=== PATIENT | female | born 1995 | race Two or more races ===

== ENCOUNTER → 2018-02-15 | Outpatient (CLI) | payer BC ==
[2018-02-15 12:59] LABS: Basophils # (auto) 0 uL; Basophils % (auto) 0.4 % (0.0-2.0); Eosinophils # (auto) 0.1 uL; Eosinophils % (auto) 1.8 % (0.0-7.0); Hematocrit 38.9 % (36.0-46.0); Hemoglobin 13.6 g/dL (12.2-16.2); Lymphocytes % (auto) 38.9 % (10.0-50.0); Mean Corpuscular Hemoglobin 32.2 pg (28.0-32.0); Mean Corpuscular Volume 92.1 fL (80.0-100.0); Monocytes # (auto) 0.6 uL; Monocytes % (auto) 7.4 % (0.0-12.0); Neutrophils # (auto) 3.9 uL; Neutrophils % (auto) 51.5 % (37.0-80.0); Platelet Count (auto) 356 10^3/uL (140-450); Red Blood Cells 4.23 10^6/uL (4.0-5.20); Red Cell Distribution Width 13.3 % (11.8-14.3); White Blood Cell 7.7 10^3/uL (4.4-10.8)
[2018-02-15 13:39] LABS: BUN/Creatinine Ratio 12.9; Bilirubin, Total 0.6 mg/dL (0.2-1.0); Calcium 8.8 mg/dL (8.5-10.1); Potassium 3.9 mmol/L (3.5-5.1); Total Protein 8.3 g/dL (6.4-8.2)
[2018-02-15 14:14] LABS: Hepatitis B Surface Antibody Positive
[2018-02-15 15:34] LABS: Hepatitis B Surface Antigen Negative (Negative)
[2018-02-16 08:05] LABS: RPR Non Reactive (Non Reactive)
== END | disposition home or self-care (01) ==
LOC: LAB 11:28
PROVIDERS: ATTEND Physician Assistant
DX: Z00.01 Encounter for general adult medical examination with abnormal findings (principal); R11.0 Nausea; R68.89 Other general symptoms and signs; K29.80 Duodenitis without bleeding; R25.2 Cramp and spasm; Z20.2 Contact with and (suspected) exposure to infections with a predominantly sexual mode of transmission; Z90.49 Acquired absence of other specified parts of digestive tract
CPT/HCPCS: 36415; 80053; 80061; 84443; 85025; 86592; 86703; 86706; 86803; 87340

== ENCOUNTER → 2018-05-21 | Outpatient (CLI) | payer BC | END | disposition home or self-care (01) | LOC: LAB 11:43 | PROVIDERS: ATTEND Internal Medicine Gastroenterology | DX: R10.33 Periumbilical pain (principal); R11.0 Nausea; R10.13 Epigastric pain | CPT/HCPCS: 36415; 82565; 82784; 83516; 84520; 86255 ==

== ENCOUNTER 2018-06-01 09:52 | Day surgery (SDC) | payer BC ==
[2018-05-28 08:54] LABS: Basophils # (auto) 0 uL; Basophils % (auto) 0.5 % (0.0-2.0); Eosinophils # (auto) 0.2 uL; Eosinophils % (auto) 2.2 % (0.0-7.0); Hematocrit 39.6 % (36.0-46.0); Lymphocytes # (auto) 2.4 uL; Lymphocytes % (auto) 33.4 % (10.0-50.0); Mean Corpuscular Hemoglobin 30.5 pg (28.0-32.0); Mean Corpuscular Hgb Conc. 32.9 g/dL (32.0-36.0); Mean Corpuscular Volume 92.7 fL (80.0-100.0); Monocytes # (auto) 0.7 uL; Monocytes % (auto) 9.5 % (0.0-12.0); Neutrophils % (auto) 54.4 % (37.0-80.0); Nucleated Red Blood Cells % 0.1 %; Platelet Count (auto) 305 10^3/uL (140-450); Red Blood Cells 4.27 10^6/uL (4.0-5.20); Red Cell Distribution Width 13.6 % (11.8-14.3); White Blood Cell 7.3 10^3/uL (4.4-10.8)
[2018-05-28 09:07] LABS: INR 0.95 (0.9-1.15); Partial Thromboplastin Time 29.3 sec (23.78-33.04); Prothrombin Time 10.2 sec (9.27-12.13)
[~2018-06-01] VITALS: Ht 152.4 cm; Wt 93.4 kg
[~2018-06-01 09:52] MED LIST: BUPR-40 PO; ESOM0.1C PO; RANI-185 PO
[2018-06-01] MEDS ORDERED: LIDOCAINE VISCOUS 2% 15ML UD ONE (10:10)
[2018-06-01] MEDS ORDERED: SODIUM CHLORIDE LOCK 10 ML ONE (10:10)
[2018-06-01] MEDS ORDERED: diphenhdrAMINE HCL 50 MG/1 ML VL ONE (10:11)
[2018-06-01] MEDS: MIDAZOLAM HCL 5 MG/ML-1ML VIAL ONE ×2 (10:51→10:54)
[2018-06-01] MEDS: fentaNYL CITRATE 100 MCG/2 ML VL ONE ×2 (10:51→10:54)
[2018-06-01 11:39] VITALS: BP 114/68
== END 2018-06-01 11:50 | disposition home or self-care (01) ==
LOC: GI 09:52
PROVIDERS: ATTEND Internal Medicine Gastroenterology
DX: K29.50 Unspecified chronic gastritis without bleeding (principal); K21.9 Gastro-esophageal reflux disease without esophagitis; E66.9 Obesity, unspecified; Z68.41 Body mass index [BMI] 40.0-44.9, adult; Z90.49 Acquired absence of other specified parts of digestive tract; Z79.899 Other long term (current) drug therapy
CPT/HCPCS: 36415; 43239; 84702; 85025; 85610; 85730; A6257; J1200; J2250; J3010; J7030

== ENCOUNTER → 2018-07-30 | Outpatient (CLI) | payer BC | END | disposition home or self-care (01) | LOC: LAB 11:38 | PROVIDERS: ATTEND Physician Assistant | DX: N92.6 Irregular menstruation, unspecified (principal) | CPT/HCPCS: 36415; 81025; 84702 ==

== ENCOUNTER → 2018-11-23 | Outpatient (CLI) | payer BC ==
[2018-11-23 12:47] LABS: Basophils # (auto) 0 uL; Basophils % (auto) 0.6 % (0.0-2.0); Eosinophils # (auto) 0.2 uL; Eosinophils % (auto) 2.2 % (0.0-7.0); Hematocrit 40.4 % (36.0-46.0); Hemoglobin 13.7 g/dL (12.2-16.2); Lymphocytes # (auto) 3.1 uL; Lymphocytes % (auto) 42.8 % (10.0-50.0); Mean Corpuscular Hemoglobin 31.8 pg (28.0-32.0); Mean Corpuscular Volume 93.7 fL (80.0-100.0); Monocytes # (auto) 0.5 uL; Monocytes % (auto) 6.9 % (0.0-12.0); Neutrophils # (auto) 3.5 uL; Neutrophils % (auto) 47.5 % (37.0-80.0); Nucleated Red Blood Cells % 0.1 %; Platelet Count (auto) 349 10^3/uL (140-450); Red Blood Cells 4.31 10^6/uL (4.0-5.20); Red Cell Distribution Width 13.4 % (11.8-14.3); White Blood Cell 7.3 10^3/uL (4.4-10.8)
[2018-11-23 13:50] LABS: Potassium 4.2 mmol/L (3.5-5.1)
[2018-11-23 14:07] LABS: Albumin 3.7 g/dL (3.4-5.0); BUN/Creatinine Ratio 8.8; Bilirubin, Total 0.3 mg/dL (0.2-1.0); Total Protein 7.7 g/dL (6.4-8.2)
== END | disposition home or self-care (01) ==
LOC: LAB 12:13
PROVIDERS: ATTEND Physician Assistant
DX: F34.1 Dysthymic disorder (principal); F41.9 Anxiety disorder, unspecified; K25.7 Chronic gastric ulcer without hemorrhage or perforation; K29.60 Other gastritis without bleeding
CPT/HCPCS: 36415; 80053; 80061; 85025

== ENCOUNTER 2020-01-06 17:38 | Inpatient (IN) | payer BC, MEDICAID ==
[~2020-01-06] VITALS: Ht 152.4 cm; Wt 76.0 kg
[2020-01-06] MEDS ORDERED: DOXYCYCLINE 100MG/250ML 250 ML IV ONE (19:00)
[2020-01-06] MEDS ORDERED: DexAMETHasone SOD PHOS 10MG/1ML VIAL INJ IV ONE (19:00)
[2020-01-06] MEDS ORDERED: SODIUM CHLORIDE 0.9% 1,000 ML IV ONE (19:00)
[2020-01-06 19:15] LABS: Basophils # (auto) 0 10 ^3/uL (0-0.2); Basophils % (auto) 0.3 % (0.0-2.0); Eosinophils # (auto) 0 10 ^3/uL (0-0.8); Lymphocytes # (auto) 0.9 10 ^3/uL (0.4-5.4); Lymphocytes % (auto) 14.2 % (10.0-50.0); Mean Corpuscular Hemoglobin 31.1 pg (28.0-32.0); Mean Corpuscular Hgb Conc. 33.3 g/dL (32.0-36.0); Mean Corpuscular Volume 93.4 fL (80.0-100.0); Monocytes # (auto) 0.8 10 ^3/uL (0-1.3); Monocytes % (auto) 12.7 % (0.0-12.0); Neutrophils # (auto) 4.8 10 ^3/uL (1.6-8.6); Neutrophils % (auto) 72.8 % (37.0-80.0); Platelet Count (auto) 308 10^3/uL (140-450); Red Blood Cells 4.49 10^6/uL (4.0-5.20); Red Cell Distribution Width 13.5 % (11.8-14.3); White Blood Cell 6.6 10^3/uL (4.4-10.8)
[2020-01-06 19:26] LABS: Albumin 3.6 g/dL (3.4-5.0); BUN/Creatinine Ratio 15.3; Potassium 3.9 mmol/L (3.5-5.1)
[2020-01-06 19:29] LABS: Bilirubin, Total 0.4 mg/dL (0.2-1.0); Total Protein 8.7 g/dL (6.4-8.2)
[2020-01-06] MEDS ORDERED: HYDROcodone-ACET 5/325MG TAB PO PRN (21:30)
[2020-01-06] MEDS ORDERED: ACETAMINOPHEN 500 MG TAB PO PRN (21:30)
[2020-01-06] MEDS ORDERED: ACETAMINOPHEN 325 MG TAB PO PRN (21:30)
[2020-01-06] MEDS ORDERED: DOCUSATE SOD 100 MG CAP PO PRN (21:30)
[2020-01-06] MEDS ORDERED: LORazepam 0.5 MG TAB PO PRN (21:30)
[2020-01-06] MEDS ORDERED: TEMAZEPAM 15 MG CAP PO PRN (21:30)
[2020-01-06] MEDS ORDERED: MORPHINE SULF INJ 2 MG/ML SYRINGE 1ML IV PRN (21:30)
[2020-01-06] MEDS ORDERED: ONDANSETRON HCL 4 MG/2 ML VIAL IV PRN (21:30)
[2020-01-06] MEDS: ALBUTEROL SULF HFA 90MCG INH 200DOSE IN SCH (22:00)
[2020-01-06 22:29] VITALS: BP 99/61
--- NOTE | 2020-01-06 22:29 | NUR ---
Telemetry admit from ER to [place] [address] Unit YOLANDA MARIA admitted to Telemetry unit. Patient oriented to CELI DEGROOT, primary RN, unit, room, bed, and unit policies regarding patient care and visiting hours. Patient now on continuous telemetry monitoring, tele box # 14 and telemetry reading on arrival to unit is sinus rhythm. Patient is alert and oriented x4. Patient reports mild shortness of breath at rest and more with exertion. Patient is on 2L/min NC, SPO2: 98% at this time. No sign/symptoms of distress noted or verbalized at this time. No use of accessory muscles noted at this time, patient is talking in full sentences. Patient denies pain at this time. Instructed on plan of care and encouraged patient to call for assistance as needed, patient verbalized as needed. Bed is locked in lowest position, side rails x 2 are up, and call light is within reach.
--- NOTE | 2020-01-06 22:30 | NUR ---
Incentive Spirometer Provided patient with an incentive spirometer. Educated patient on the purpose of the incentive spirometer, how often to use, and how to use it. Patient verbalized understanding and returned demonstration. Patient able to raise marker to 500ml without complications.
[2020-01-06] MEDS: DOXYCYCLINE 100 MG TAB/CAP PO SCH (22:52)
[2020-01-06] MEDS: SODIUM CHLORIDE 0.9% 1,000 ML IV SCH (22:53)
[2020-01-07] VITALS (7 sets, daily range): BP systolic 90–105; BP diastolic 41–67
[2020-01-07] MEDS ORDERED: OMEP-434 PO (00:01)
[2020-01-07] MEDS ORDERED: DOXE10CA PO (00:01)
[2020-01-07] MEDS ORDERED: PAR20T PO (00:01)
--- NOTE | 2020-01-07 00:42 | NUR ---
Urine Specimen Urine specimen collected and sent to lab via bullet as ordered by .
[2020-01-07 01:41] LABS: Urine Bacteria FEW /hpf (None Seen); Urine Blood 3+ /uL (Negative); Urine Specific Gravity 1.009 (1.001-1.035); Urine WBC 3 /hpf (0 - 5)
--- NOTE | 2020-01-07 02:30 | NUR ---
Charge nurse made aware of positive covid-19 test result. Covid-[address]
[2020-01-07 05:02] LABS: Basophils # (auto) 0 10 ^3/uL (0-0.2); Basophils % (auto) 0.3 % (0.0-2.0); Eosinophils # (auto) 0 10 ^3/uL (0-0.8); Hematocrit 38.2 % (36.0-46.0); Hemoglobin 12.6 g/dL (12.2-16.2); Lymphocytes # (auto) 0.9 10 ^3/uL (0.4-5.4); Lymphocytes % (auto) 23.6 % (10.0-50.0); Mean Corpuscular Hemoglobin 30.9 pg (28.0-32.0); Mean Corpuscular Hgb Conc. 32.9 g/dL (32.0-36.0); Mean Corpuscular Volume 93.7 fL (80.0-100.0); Monocytes # (auto) 0.4 10 ^3/uL (0-1.3); Monocytes % (auto) 11.9 % (0.0-12.0); Neutrophils # (auto) 2.4 10 ^3/uL (1.6-8.6); Neutrophils % (auto) 64.2 % (37.0-80.0); Nucleated Red Blood Cells % 0.1 %; Platelet Count (auto) 279 10^3/uL (140-450); Red Blood Cells 4.08 10^6/uL (4.0-5.20); Red Cell Distribution Width 13.1 % (11.8-14.3); White Blood Cell 3.8 10^3/uL (4.4-10.8)
[2020-01-07 05:16] LABS: Albumin 3.1 g/dL (3.4-5.0); Calcium 8.3 mg/dL (8.5-10.1); Magnesium 2.1 mg/dL (1.6-2.6); Potassium 3.9 mmol/L (3.5-5.1)
[2020-01-07 05:22] LABS: BUN/Creatinine Ratio 22.9; Bilirubin, Total 0.3 mg/dL (0.2-1.0); Total Protein 7.6 g/dL (6.4-8.2)
[2020-01-07] MEDS: ALBUTEROL SULF HFA 90MCG INH 200DOSE IN SCH ×4 (06:00→21:36)
--- NOTE | 2020-01-07 07:00 | NUR ---
Patient Lalo on monitor, however asymptomatic, patient already wearing 02 1/5 liters, sleeping. Patient states she always runs low on her blood pressure and heart rate. She says her primary Dr is aware and she takes no mediations for it.
[2020-01-07] MEDS ORDERED: ZINC SULFATE 220mg CAP or TAB PO SCH (10:00)
[2020-01-07] MEDS ORDERED: ENOXAPARIN SOD 40 MG/0.4 ML SYRINGE SC SCH (10:00)
[2020-01-07] MEDS ORDERED: PANTOPRAZOLE 40 MG TAB PO SCH (10:00)
[2020-01-07] MEDS ORDERED: ASCORBIC ACID 1,000 MG TAB PO SCH (10:00)
[2020-01-07] MEDS: DOXYCYCLINE 100 MG TAB/CAP PO SCH ×2 (10:04→21:36)
--- NOTE | 2020-01-07 13:03 | NUR ---
deandre MEDINA Re patients low HR and low BP (patient states these are normal for her).
--- NOTE | 2020-01-07 13:34 | NUR ---
Dr Giuliano Woodard. called back aware of HR and BP, no further orders. Waiting Pulm clearance.
[2020-01-07] MEDS: SODIUM CHLORIDE 0.9% 1,000 ML IV SCH (14:08)
--- NOTE | 2020-01-07 15:47 | NUR ---
Assessment Patient is a 24- year-old female who is alert and oriented. Prior to admission patient lived home with family and function independently. Per patient she can care for her own ADLs. Per patient she does not have any home oxygen or medical equipment now . Per patient she will return to her prior living arrangements post discharge and family will transport her home. Patient PCP is Dr. Hernandez. Advise patient to follow up with primary doctor after discharge. Advised patient there is a social service consult for home health safety evaluation. Informed patient clinical information will be faxed to [facility]. Informed patient she has the right to participate in all discharge planning. Patient verbalized understanding. Faxed clinical information to [facility] [facility] and [facility] requesting authorization for home health. Per Khushboo with [employer] [phone] patient has been accepted and service to start within 24-48hrs upon d/c day. Addendum: 01/07/20 at 1552 by SARAY DONAHUE Amended: Links added.
[2020-01-07] MEDS ORDERED: IOHEXOL 350 MG/ML 100ML IJ ONE (17:47)
--- NOTE | 2020-01-07 17:55 | NUR ---
Radiology called, they are preparing for patient, will meet at [facility] ante-room to take patient.
--- NOTE | 2020-01-07 17:59 | NUR ---
patient informed of potential DC, need for Urine sample and Ct and US. Patient verbalized understanding of instructions.
--- NOTE | 2020-01-07 18:10 | NUR ---
behavioral technician at bedside.
[2020-01-07] MEDS ORDERED: ZINC220T6 PO (18:12)
[2020-01-07] MEDS ORDERED: IPRIH INH (18:12)
[2020-01-07] MEDS ORDERED: ALBUAER3 IN (18:12)
[2020-01-07] MEDS ORDERED: DOX100T PO (18:12)
[2020-01-07] MEDS ORDERED: ASCO10003 PO (18:12)
--- NOTE | 2020-01-07 18:33 | NUR ---
ultrasound done, Ct at bedside to take patient down.
--- NOTE | 2020-01-07 18:43 | NUR ---
patient taken down to CT
--- NOTE | 2020-01-07 20:00 | NUR ---
Dr. Jones at Bedside Dr. Jones at bedside discussing plan of care with patient. Dr. Jones made aware that patient's oxygen saturation at rest is 98% on room air and with ambulation 94-95% on room air. Per Dr. Jones patient is cleared to be discharged from his standpoint.
--- NOTE | 2020-01-07 21:55 | NUR ---
[employer]S and Security Paged EVS and security paged.
--- NOTE | 2020-01-07 22:10 | NUR ---
EVS and security repaged EVS and security repaged.
--- NOTE | 2020-01-07 22:15 | NUR ---
Discharge Discharge instructions given as ordered. Encourage to follow up with primary care provider as instructed. Patient made aware that she has home health with [facility] and they should follow up with her within 24 to 48 hours of discharge, patient verbalized understanding. All questions and concerns addressed. Patient verbalized understanding. Medication reconciliation form completed and copy given to patient. New prescriptions sent to [facility] electronically. IV removed with catheter intact, pressure dressing applied. Telemetry unit returned to ICU. Patient taken to vehicle via wheelchair with all personal belongings, accompanied by staff, EVS, and security. No sign/symptoms of distress noted or verbalized upon departure.
== END 2020-01-08 00:09 | disposition home health service (06) | DRG 137 ==
LOC: ER 17:38 → TELE 17:39 → TELE-EAST 22:29
PROVIDERS: ADMIT Hospitalist; ATTEND Hospitalist
DX: U07.1 COVID-19 (principal); J12.89 Other viral pneumonia; E66.9 Obesity, unspecified; F41.9 Anxiety disorder, unspecified; K21.9 Gastro-esophageal reflux disease without esophagitis; Z82.49 Family history of ischemic heart disease and other diseases of the circulatory system; Z68.32 Body mass index [BMI] 32.0-32.9, adult; Z83.3 Family history of diabetes mellitus; J15.9 Unspecified bacterial pneumonia
CPT/HCPCS: 36415; 71045; 71275; 80053; 81001; 82728; 83605; 83735; 84702; 85025; 85379; 86141; 87040; 87081; 93970; 94640; 96365; 96366; 96375; G0378; J1100; J2405; J3490

== ENCOUNTER → 2020-08-14 | Outpatient (CLI) | payer MEDICAID ==
[~2020-08-14] MED LIST changes: +ALBUAER3 IN; +ASCO10003 PO; -BUPR-40 PO; +DOX100T PO; +DOXE10CA PO; -ESOM0.1C PO; +IPRIH INH; +OMEP-434 PO; +PAR20T PO; +ZINC220T6 PO
[2020-08-14 11:16] LABS: Basophils # (auto) 0 10 ^3/uL (0-0.2); Basophils % (auto) 0.9 % (0.0-2.0); Eosinophils # (auto) 0.1 10 ^3/uL (0-0.8); Eosinophils % (auto) 2.2 % (0.0-7.0); Hematocrit 34.7 % (36.0-46.0); Lymphocytes # (auto) 1.8 10 ^3/uL (0.4-5.4); Lymphocytes % (auto) 32.5 % (10.0-50.0); Mean Corpuscular Hemoglobin 32.4 pg (28.0-32.0); Mean Corpuscular Hgb Conc. 34.6 g/dL (32.0-36.0); Mean Corpuscular Volume 93.5 fL (80.0-100.0); Monocytes # (auto) 0.5 10 ^3/uL (0-1.3); Monocytes % (auto) 8.2 % (0.0-12.0); Neutrophils # (auto) 3.1 10 ^3/uL (1.6-8.6); Neutrophils % (auto) 56.2 % (37.0-80.0); Nucleated Red Blood Cells % 0.1 %; Platelet Count (auto) 284 10^3/uL (140-450); Red Blood Cells 3.71 10^6/uL (4.0-5.20); Red Cell Distribution Width 13.7 % (11.8-14.3); White Blood Cell 5.6 10^3/uL (4.4-10.8)
[2020-08-14 11:49] LABS: Albumin 3.4 g/dL (3.4-5.0); Calcium 8.5 mg/dL (8.5-10.1); Potassium 3.9 mmol/L (3.5-5.1)
[2020-08-14 11:55] LABS: BUN/Creatinine Ratio 28.3; Bilirubin, Total 0.4 mg/dL (0.2-1.0); Total Protein 7.2 g/dL (6.4-8.2)
[2020-08-15 07:06] LABS: RPR Non Reactive (Non Reactive)
== END | disposition home or self-care (01) ==
LOC: LAB 10:51
PROVIDERS: ATTEND Internal Medicine
DX: K25.7 Chronic gastric ulcer without hemorrhage or perforation (principal); R07.81 Pleurodynia; A54.9 Gonococcal infection, unspecified; R53.83 Other fatigue; B97.7 Papillomavirus as the cause of diseases classified elsewhere
CPT/HCPCS: 36415; 80053; 80061; 82306; 84443; 85025; 86592; 86703; 86704; 86706; 86708; 86803; 87340

== ENCOUNTER → 2021-06-25 | Outpatient (CLI) | payer MEDICAID | END | disposition home or self-care (01) | LOC: Rad HDHVI 08:13 | PROVIDERS: ATTEND Internal Medicine Cardiovascular Disease | DX: I05.0 Rheumatic mitral stenosis (principal); I35.0 Nonrheumatic aortic (valve) stenosis | CPT/HCPCS: 93306 ==

== ENCOUNTER → 2022-10-31 | Outpatient (CLI) | payer MEDICAID ==
[2022-10-31 15:13] LABS: Basophils # (auto) 0 10 ^3/uL (0-0.2); Basophils % (auto) 0.7 % (0.0-2.0); Eosinophils # (auto) 0.2 10 ^3/uL (0-0.8); Eosinophils % (auto) 2.5 % (0.0-7.0); Hematocrit 38.7 % (36.0-46.0); Hemoglobin 13.3 g/dL (12.2-16.2); Lymphocytes # (auto) 2.8 10 ^3/uL (0.4-5.4); Lymphocytes % (auto) 39.9 % (10.0-50.0); Mean Corpuscular Hemoglobin 30.8 pg (28.0-32.0); Mean Corpuscular Hgb Conc. 34.2 g/dL (32.0-36.0); Monocytes # (auto) 0.5 10 ^3/uL (0-1.3); Monocytes % (auto) 7.5 % (0.0-12.0); Neutrophils # (auto) 3.5 10 ^3/uL (1.6-8.6); Neutrophils % (auto) 49.4 % (37.0-80.0); Red Cell Distribution Width 13.9 % (11.8-14.3)
[2022-10-31 15:40] LABS: Albumin 3.8 g/dL (3.4-5.0); Calcium 8.6 mg/dL (8.5-10.1)
[2022-10-31 15:45] LABS: BUN/Creatinine Ratio 16.2 (10.0-20.0); Bilirubin, Total 0.4 mg/dL (0.2-1.0); Total Protein 7.6 g/dL (6.4-8.2)
== END | disposition home or self-care (01) ==
LOC: LAB 14:51
DX: E66.01 Morbid (severe) obesity due to excess calories (principal); E78.5 Hyperlipidemia, unspecified; F41.9 Anxiety disorder, unspecified
CPT/HCPCS: 36415; 80053; 80061; 82306; 84439; 84443; 85025

== ENCOUNTER 2025-04-15 12:47 | Outpatient (CLI) | payer OTHER ==
[~2025-04-15 12:47] MED LIST changes: +ALPR0.5T PO; +IBU600T PO; +PAR20T GT; +ZOFR4T PO
[2025-04-15 13:08] LABS: Hematocrit 36.2 % (36.0-46.0); Hemoglobin 12.2 g/dL (12.2-16.2); Mean Corpuscular Hemoglobin 30.0 pg (28.0-32.0); Mean Corpuscular Volume 88.7 fL (80.0-100.0); Nucleated Red Blood Cells % 0.1 %
[2025-04-15 13:25] LABS: Urine Budding Yeast OCCASIONAL /hpf (None Seen); Urine Protein, UAD Negative (Negative)
[2025-04-15 13:26] LABS: Alanine Aminotransferase 26 U/L (7-40); Albumin 4.5 g/dL (3.2-4.8); Alkaline Phosphatase 99 U/L (46-116); Anion Gap 9 (5-15); Calcium 9.0 mg/dL (8.7-10.4); Carbon Dioxide 25 mmol/L (20-31); Chloride 104 mmol/L (98-107); Glucose 85 mg/dL (74-106); Potassium 4.1 mmol/L (3.5-5.1); Sodium 138 mmol/L (136-145)
[2025-04-15 13:27] LABS: BUN/Creatinine Ratio 17.9 (10.0-20.0); Blood Urea Nitrogen 12 mg/dL (9-23); Total Protein 7.7 g/dL (5.7-8.2)
[2025-04-15 13:29] LABS: Bilirubin, Total 0.4 mg/dL (0.2-1.0); INR 0.98 (0.9-1.15); Prothrombin Time 10.4 sec (9.3-11.8)
[2025-04-16 11:36] LABS: Hepatitis B Surface Antigen Negative (Negative)
[2025-04-16 11:48] LABS: Hepatitis C Antibody Negative (Negative)
== END 2025-04-15 17:00 | disposition home or self-care (01) ==
LOC: LAB 12:47
PROVIDERS: ATTEND Nurse Practitioner Family
DX: E78.5 Hyperlipidemia, unspecified (principal); E66.01 Morbid (severe) obesity due to excess calories; Z79.899 Other long term (current) drug therapy
CPT/HCPCS: 36415; 80053; 80074; 81001; 81025; 83036; 84443; 85025; 85610